=== PATIENT | male | born 1970 | race African-American/Black ===

== ENCOUNTER 2020-05-14 19:43 | Emergency (ER) | payer MEDICAID ==
[~2020-05-14] VITALS: Ht 172.7 cm; Wt 73.0 kg
[2020-05-14] MEDS ORDERED: LIDOCAINE HCL 1% 20ML VIAL (Pyxis) INJ INFIL ONE (20:00)
[2020-05-14] MEDS ORDERED: ACETAMINOPHEN 325MG TABLET PO ONE (20:00)
[2020-05-14] MEDS ORDERED: OXYCODONE HCL 10MG TABLET SR 12HR PO ONE (21:15)
[2020-05-14] MEDS ORDERED: IBUPROFEN 600MG TABLET PO ONE (21:15)
[2020-05-14] MEDS ORDERED: LIDOCAINE HCL/EPINEPHRINE 1%-EPI 1:100,000 50 ML VIAL INFIL ONE (23:00)
[2020-05-14] MEDS ORDERED: LIDOCAINE HCL/EPINEPHRINE 1%-EPI 1:100,000 10 ML VIAL INFIL ONE (23:15)
[2020-05-14] MEDS ORDERED: TETANUS, DIPHTHERIA, PERTUSSIS VAC/PF 0.5ML (>7YR OLD) IM ONE (23:30)
[2020-05-15 01:09] VITALS: BP 87/86
[2020-05-15] MEDS ORDERED: CEPH500C2 MT (01:10)
== END 2020-05-15 01:14 | disposition home or self-care (01) ==
LOC: ER 19:43
DX: S61.411A Laceration without foreign body of right hand, initial encounter (principal); W22.8XXA Striking against or struck by other objects, initial encounter; Y93.89 Activity, other specified; Y92.89 Other specified places as the place of occurrence of the external cause; Y99.8 Other external cause status
CPT/HCPCS: 12002; 73120; 90471; 90715; 99284; J3490; Z7610